=== PATIENT | male | born 1960 | race Caucasian/White ===

== ENCOUNTER → 2016-07-07 | Outpatient (REF) ==
[~2016-07-07] MED LIST: ACTOS 45MG45 MG/TAB PO; ESCITALOPRAM; LANTUS100 U/ML; MIRAPEX; NOVOLOG100 U/ML IV; XANAX0.5 MG PO
== END ==
LOC: WSOH 13:10
DX: Z00.00 Encounter for general adult medical examination without abnormal findings (principal)

== ENCOUNTER 2021-02-08 18:35 | Emergency (ER) | payer OTHER ==
[~2021-02-08] VITALS: Ht 172.7 cm; Wt 93.2 kg
[~2021-02-08 18:35] MED LIST changes: +XANAX 0.5MG0.5 MG PO; -XANAX0.5 MG PO
[2021-02-08 18:47] VITALS: TEMP 98.4
[2021-02-08 19:41] LABS: BASO % 0.4 % (0.0-2.0); EOS # 0.1 K/mm3 (0.0-0.7); EOS % 1.3 % (0-4.0); GRAN # 4.4 K/mm3 (1.4-6.5); GRAN % 52.5 % (42.2-75.2); HEMATOCRIT 39.9 % (42.0-52.0); HEMOGLOBIN 13.9 g/dl (13.5-18.0); LYMPH % 36.2 % (20.0-51.0); MEAN CELL VOLUME 90 fl (80.0-100.0); MEAN CORPUSCULAR HEMOGLOBIN 31 pg (27.0-31.0); MEAN CORPUSCULAR HGB CONC 35 g/dl (33.0-37.0); MEAN PLATELET VOLUME 9.4 fl (7.4-10.4); MONO # 0.8 K/mm3 (0.1-0.6); MONO % 9.1 % (1.7-9.3); PLATELET COUNT 228 K/mm3 (130-400); RED BLOOD COUNT 4.44 M/mm3 (4.20-5.60)
[2021-02-08 19:52] LABS: ALANINE AMINOTRANSFERASE 27 U/L (0-55); ALBUMIN 4.3 gm/dL (3.5-5.0); ALKALINE PHOSPHATASE 53 U/L (40-150); ANION GAP 10 mmol/L (7-16); AST,SGOT 19 U/L (5-34); BILIRUBIN,TOTAL 0.2 mg/dL (0.2-1.2); BLOOD UREA NITROGEN 12 mg/dL (8-26); CALCIUM 9.4 mg/dL (8.4-10.2); CARBON DIOXIDE 23 mmol/L (22-29); CHLORIDE 104 mmol/L (98-107); CREATININE, serum 0.75 mg/dL (0.72-1.25); GLUCOSE 140 mg/dL (70-99); POTASSIUM 3.9 mmol/L (3.5-4.5); SODIUM 137 mmol/L (136-145); TOTAL PROTEIN 7.2 gm/dL (6.2-8.1)
[2021-02-08 20:00] LABS: TROPONIN-I < 0.010 ng/mL (0.00-0.033)
[2021-02-08 21:25] VITALS: BP 157/78; PULSE 61
[2021-02-22] MEDS ORDERED: NEURONTIN300 MG/CAP PO (12:58)
[2021-02-22] MEDS ORDERED: SOMA 350MG350 MG/TAB PO (12:58)
[2021-02-22] MEDS ORDERED: IMDUR 30MG30 MG/TAB PO (12:59)
[2021-02-22] MEDS ORDERED: ASPIRIN E.C. 8181 MG PO (12:59)
[2021-02-22] MEDS ORDERED: COZAAR 25MG25 MG/TAB PO (13:00)
== END 2021-02-08 21:25 | disposition home or self-care (01) ==
LOC: COL.ER 18:35
PROVIDERS: Student in an Organized Health Care Education/Training Program
DX: R07.89 Other chest pain (principal); I25.2 Old myocardial infarction

== ENCOUNTER → 2021-02-22 | Outpatient (CLI) | payer OTHER ==
[~2021-02-22] VITALS: Ht 172.7 cm; Wt 96.1 kg
[~2021-02-22] MED LIST changes: +ASPIRIN E.C. 8181 MG PO; +COZAAR 25MG25 MG/TAB PO; +IMDUR 30MG30 MG/TAB PO; +NEURONTIN300 MG/CAP PO; +SOMA 350MG350 MG/TAB PO
[2021-02-22 13:04] VITALS: BP 163/72; PULSE 74; TEMP 98.5
[2021-02-22 14:35] VITALS: BP 168/81; PULSE 51
== END ==
LOC: COL.RAD 12:20
DX: M54.42 Lumbago with sciatica, left side (principal)
CPT/HCPCS: J3301